=== PATIENT | male | born 1955 | race Caucasian/White ===

== ENCOUNTER → 2020-11-28 | Outpatient (CLI) | payer MEDICARE ==
[~2020-11-28] MED LIST: FLOMAX 0.40.4 MG/CAP PO; HYGROTON 2525 MG/TAB PO; NORVASC 5MG5 MG/TAB PO; PRILOSEC 20MG20 MG PO; WELLBUTRIN SR150 M1 PO
--- NOTE | 2020-11-28 10:00 | NUR ---
Pt here following CT scan to receive IV fluids due to slightly increased creatinine level. Awaiting order from urologists. Pt into relax in chair in room.
== END ==
LOC: COL.RAD 08:49
DX: Z01.812 Encounter for preprocedural laboratory examination (principal); C61 Malignant neoplasm of prostate; M16.0 Bilateral primary osteoarthritis of hip
CPT/HCPCS: A9503; J7050; Q9967

== ENCOUNTER → 2021-02-26 | Outpatient (CLI) | payer MEDICARE ==
[2021-02-26 13:47] VITALS: BP 135/72; PULSE 100; TEMP 98.2
--- NOTE | 2021-02-26 14:05 | NUR ---
Dr Dewitt into ultrasound to look at lymph nodes. Dr Dewitt states positive result is due to covid injection on last wednesday. Procedure canceled and Dr Dewitt was calling Dr Gould. Pt back to holding area. Pt changed and then pt wheeled out to car. Pt up and into car with standby assistance.
== END ==
LOC: COL.RAD 13:21
DX: Z51.0 Encounter for antineoplastic radiation therapy (principal); R59.0 Localized enlarged lymph nodes; C34.2 Malignant neoplasm of middle lobe, bronchus or lung

== ENCOUNTER 2021-07-08 12:58 | Inpatient (IN) | payer MEDICARE ==
[~2021-07-08] VITALS: Ht 177.8 cm; Wt 74.1 kg
[2021-07-08] MEDS ORDERED: COMPAZINE 5MG TA5 MG PO (16:18)
[2021-07-08] MEDS ORDERED: NORCO 325 MG-51 TAB PO (16:19)
[2021-07-08 17:35] LABS: ARTERIAL BLOOD GAS BASE EXCESS -4.1 (-2-2); ARTERIAL BLOOD GAS HCO3 18.3 meq/L (22-26); ARTERIAL BLOOD GAS PCO2 25.2 mmHg (35-45); ARTERIAL BLOOD GAS PO2 57.6 mmHg (80-100); ARTERIAL BLOOD GAS pH 7.48 (7.35-7.45)
[2021-07-08 17:41] VITALS: BP 117/61; PULSE 101; TEMP 98
[2021-07-08 18:30] LABS: PARTIAL THROMBOPLASTIN TIME 29.1 SECONDS (26.0-37.0)
[2021-07-08 19:29] VITALS: BP 103/67; PULSE 96; TEMP 98.5
[2021-07-09 00:27] VITALS: BP 120/67; PULSE 98; TEMP 98.2
[2021-07-09 04:12] VITALS: BP 107/67; PULSE 74; TEMP 97.4
[2021-07-09 06:22] LABS: MEAN CELL VOLUME 96 fl (80.0-100.0); MEAN CORPUSCULAR HGB CONC 33 g/dl (33.0-37.0); MEAN PLATELET VOLUME 11.8 fl (7.4-10.4); PLATELET COUNT 73 K/mm3 (130-400); RED BLOOD COUNT 2.72 M/mm3 (4.20-5.60); REDCELL DISTRIBUTION WIDTH-CV 14.3 % (11.5-14.5)
[2021-07-09 06:28] LABS: HEMATOCRIT 26.1 % (42.0-52.0); HEMOGLOBIN 8.7 g/dl (13.5-18.0); MEAN CORPUSCULAR HEMOGLOBIN 32 pg (27-31)
--- NOTE | 2021-07-09 06:33 | NUR ---
AT THE BEGINNING OF THE AIRCRAFT MAINTENANCE DIRECTOR PATIENT WAS VERY ANXIOUS AND STATING HE COULD NOT BREATHE WITH THE AIRVO ON. THIS NURSE CONTACTED RT TO COME ADJUST THE AIRVO TEMP SETTING FOR PATIENT. THIS DID HELP THE PATIENT FOR AWHILE BUT HE AGAIN BECAME ANXIOUS ABOUT THE AIRVO. CONTACTED MATT LAKHANI AND PUT IN AN ORDER FOR ATIVAN 0.25MG PO AND 9MG MELATONIN. PATIENT HAS BEEN CALM SINCE THESE MEDICATIONS WERE ADMINISTERED. NO OTHER ISSUES NOTED BY THIS NURSE OR REPORTED BY PATIENT.
[2021-07-09 06:44] LABS: CALCIUM 7.7 mg/dL (8.4-10.2); CREATININE, serum 1.3 mg/dL (0.72-1.25); MAGNESIUM 1.5 mg/dL (1.6-2.6); POTASSIUM 3.9 mmol/L (3.5-4.5)
[2021-07-09 07:41] LABS: BAND 2 % (0-10); LYMPHOCYTE 8 % (20.0-51.0); NEUTROPHILS 85 % (42.0-75.2)
[2021-07-09 07:45] LABS: PLATELET ESTIMATE DECREASED (NORMAL)
--- NOTE | 2021-07-09 08:06 | NUR ---
Pt. progressing w/ plan of care. Assessment complete. Needs addressed. Call light and belongings in reach.
[2021-07-09 09:30] VITALS: BP 94/59; PULSE 79; TEMP 97.4
[2021-07-09 12:12] VITALS: BP 95/55; PULSE 69; TEMP 97.5
--- NOTE | 2021-07-09 13:42 | NUR ---
Patient is currently on 45L of airvo. Unable to complete intake with his. Phone call made and message left for the patient's father Navid ([phone]). Phone call made to [facility] in and they confirm that the patient's PCP is Dr. Morena Go at [facility] in . The emergency contact they have on file for the patient is his father and they do not have a DPOA-HC on file. Phone call made to Dr. Obando's office and they too have the patient's father listed as an emergency contact and do not have a DPOA-HC on file for this patient. Collaboration made with the patient's RN to have the patient complete a DPOA-HC form.
--- NOTE | 2021-07-09 14:32 | NUR ---
With the help of the patient's Rn Zari, patient completed DPOA-HC listing his son Bernard ([phone]) with an alternate Saba ([phone]). Copy placed in the patient's chart.
[2021-07-09 15:55] VITALS: BP 97/60; PULSE 74; TEMP 97.5
--- NOTE | 2021-07-09 17:39 | NUR ---
Pt. progressing w/ plan of care. Pain has been tolerable today. Portacath accessed to left chest per Dr. Garcia order. Pt. is sitting upright eating dinner at this time. Remdesivir infusing through R forearm. Pt. is currently on airvo 45L 75%. O2 sat WNL. Needs addressed. Call light and belongings in reach.
[2021-07-09 21:04] VITALS: BP 96/59; PULSE 66; TEMP 97.4
[2021-07-10 00:38] VITALS: BP 101/62; PULSE 67; TEMP 97.7
[2021-07-10 04:00] VITALS: BP 106/63; PULSE 69; TEMP 98.6
[2021-07-10 06:13] LABS: MEAN CELL VOLUME 97 fl (80.0-100.0); MEAN CORPUSCULAR HGB CONC 33 g/dl (33.0-37.0); MEAN PLATELET VOLUME 11.6 fl (7.4-10.4); PLATELET COUNT 72 K/mm3 (130-400); REDCELL DISTRIBUTION WIDTH-CV 14.2 % (11.5-14.5)
[2021-07-10 06:20] LABS: HEMATOCRIT 27.1 % (42.0-52.0); HEMOGLOBIN 8.9 g/dl (13.5-18.0); MEAN CORPUSCULAR HEMOGLOBIN 32 pg (27-31)
[2021-07-10 06:27] LABS: CALCIUM 7.7 mg/dL (8.4-10.2); CREATININE, serum 1.18 mg/dL (0.72-1.25); POTASSIUM 4.3 mmol/L (3.5-4.5)
[2021-07-10 06:38] LABS: MAGNESIUM 1.8 mg/dL (1.6-2.6)
[2021-07-10 07:24] VITALS: BP 100/61; PULSE 80; TEMP 97.5
--- NOTE | 2021-07-10 07:27 | NUR ---
ASSESSMENT COMPLETE FOR THIS SHIFT. PT RESTING IN BED SLEEPING. PT COMPLAINED OF GENERALIZED PAIN A COUPLE OF TIME TONIGHT. NORCO GIVEN FOR PAIN. PAIN MEDICATION EFFECTIVE PER PT. PT DENIED PALPITATIONS, N,V,D OR DIZZINESS. PT ALSO COMPLAINED OF DIFFICULTY BREATHING A LITTLE AFTER 0300HRS. RT CALLED. PT'S INHALER GIVEN. PT STATED HE COULD BREATH BETTER AFTER INHALER. PT EXPRESSED NO OTHER NEEDS AT THIS TIME. CALL LIGHT WITHIN REACH.
[2021-07-10 08:52] LABS: BAND 3 % (0-10); LYMPHOCYTE 4 % (20.0-51.0); NEUTROPHILS 93 % (42.0-75.2); OVALOCYTES 1+
[2021-07-10 08:53] LABS: PLATELET ESTIMATE DECREASED (NORMAL)
[2021-07-10 10:56] VITALS: BP 102/60; PULSE 71; TEMP 98
--- NOTE | 2021-07-10 14:03 | NUR ---
Scheduled medications given. Shift assessment performed. Patient currently requiring 45L of airvo at 70%. SOB at rest noted. Fluids dc'd per doctors orders. Patient has been afebrile and denies any N/V/D. Patient states that he as generalized aching pain, but denies the need for any medication at this time. Patient denies any further pain, discomfort, or further needs at this time. Call light in reach. Fall percautions in place. VSS. Patient A&O.
[2021-07-10 16:21] VITALS: BP 112/63; PULSE 77; TEMP 97.5
[2021-07-10 21:01] VITALS: BP 128/63; PULSE 77; TEMP 97.3
[2021-07-11] VITALS (7 sets, daily range): BP systolic 109–125; BP diastolic 60–71; PULSE 61–85; TEMP 97.5–98
--- NOTE | 2021-07-11 05:32 | NUR ---
Patient awake, alert, oriented x 4, able to verbalize needs, tolerating airvo, denies needs, pain managed with PRN pain meds per MAR, no further reqests at this time, VS stable.
[2021-07-11 06:13] LABS: CREATININE, serum 1.18 mg/dL (0.72-1.25)
--- NOTE | 2021-07-11 18:12 | NUR ---
PATIENT SAT UP IN THE RECLINER FOR 2 HOURS TODAY. HE STATED IT FELT GOOD TO GET OUT OF BED. THIS NURSE ENCOURAGED PATIENT TO TRY TO EAT ALL OF HIS MEALS IN THE CHAIR. PATIENT STATED HE IS FEELING MUCH BETTER TODAY. NO NEW ISSUES NOTED BY THIS NURSE OR REPORTED BY PATIENT. NEW FENT PATCH PLACED ON PATIENTS RIGHT UPPER ARM.
--- NOTE | 2021-07-12 00:12 | NUR ---
Call placed to RT re: SPO2 @89% on airvo- will come adjust O2 settings. Patient stable at this time. NO c/o.
[2021-07-12 04:10] VITALS: BP 109/53; PULSE 80; TEMP 97.8
[2021-07-12 06:07] LABS: HEMOGLOBIN 10.2 g/dl (13.5-18.0); MEAN CELL VOLUME 98 fl (80.0-100.0); MEAN CORPUSCULAR HEMOGLOBIN 33 pg (27-31); MEAN CORPUSCULAR HGB CONC 33 g/dl (33.0-37.0); MEAN PLATELET VOLUME 11.9 fl (7.4-10.4); PLATELET COUNT 77 K/mm3 (130-400); RED BLOOD COUNT 3.14 M/mm3 (4.20-5.60); REDCELL DISTRIBUTION WIDTH-CV 14.3 % (11.5-14.5)
[2021-07-12 06:15] LABS: HEMATOCRIT 30.7 % (42.0-52.0)
[2021-07-12 06:28] LABS: EOS % 0.3 % (0.0-4.0); GRAN # 5.4 K/mm3 (1.4-6.5); GRAN % 86.5 % (42.2-75.2); LYMPH # 0.6 K/mm3 (1.2-3.4); MONO # 0.2 K/mm3 (0.1-0.6); MONO % 3.2 % (1.7-9.3)
[2021-07-12 06:57] LABS: CALCIUM 8.2 mg/dL (8.4-10.2); CREATININE, serum 1.15 mg/dL (0.72-1.25); POTASSIUM 5.1 mmol/L (3.5-4.5)
[2021-07-12 08:35] VITALS: BP 125/92; PULSE 88; TEMP 97.5
--- NOTE | 2021-07-12 09:06 | NUR ---
PT ASSESSED. NO COMPLAINTS OF PAIN. COMPLAINS OF DYSPNEA, BUT IS ABLE TO REMAIN CALM AND HAVE STABLE SATURATIONS. RT AWARE. CALL LIGHT WITHIN REACH
--- NOTE | 2021-07-12 09:51 | NUR ---
CALLED TO BEDSIDE TO ASSIST WITH GOING TO THE RESTROOM PT EXTREMELY SHORT OF BREATH. DENIES DIZZINESS OR PAIN. PULSE OX AT 75% UPON RETURN TO BED. PT CLEARLY ANXUIOUS AND TELLS HIMSELF TO CALM DOWN REPEATEDLY. PT TAKES GREATER THAN 6 MINUTES TO RECOVER FROM TRIP TO BATHROOM. SATURATION AT 92% BEFORE THIS NURSE LEAVES. MD AT BEDSIDE NOW. NO OTHER COMPLAINTS.
[2021-07-12 11:34] VITALS: BP 118/65; PULSE 85; TEMP 97.7
[2021-07-12 16:24] VITALS: BP 103/51; PULSE 89; TEMP 97.7
[2021-07-12 20:41] VITALS: BP 104/65; PULSE 96; TEMP 98.2
[2021-07-13] VITALS: BP 100/62; PULSE 80; TEMP 97.9
[2021-07-13 04:27] VITALS: BP 108/67; PULSE 95; TEMP 97.8
[2021-07-13 06:43] LABS: HEMOGLOBIN 10.7 g/dl (13.5-18.0); MEAN CELL VOLUME 96 fl (80.0-100.0); MEAN CORPUSCULAR HEMOGLOBIN 32 pg (27-31); MEAN CORPUSCULAR HGB CONC 34 g/dl (33.0-37.0); MEAN PLATELET VOLUME 12.5 fl (7.4-10.4); PLATELET COUNT 87 K/mm3 (130-400); RED BLOOD COUNT 3.32 M/mm3 (4.20-5.60); REDCELL DISTRIBUTION WIDTH-CV 14.3 % (11.5-14.5)
[2021-07-13 06:59] LABS: HEMATOCRIT 31.8 % (42.0-52.0)
[2021-07-13 07:01] LABS: CALCIUM 8.3 mg/dL (8.4-10.2); CREATININE, serum 1.23 mg/dL (0.72-1.25); POTASSIUM 4.4 mmol/L (3.5-4.5)
[2021-07-13 07:47] LABS: BAND 2 % (0-10); EOSINOPHIL 2 % (0-4); LYMPHOCYTE 4 % (20.0-51.0); NEUTROPHILS 90 % (42.0-75.2); PLATELET ESTIMATE DECREASED (NORMAL)
[2021-07-13 07:48] LABS: TEAR DROP CELLS 1+
[2021-07-13 09:00] VITALS: BP 107/70; PULSE 103; TEMP 97.5
--- NOTE | 2021-07-13 09:07 | NUR ---
PT ASSESSED. NO COMPLAINS OF PAIN AND DSYPNEA AND IS MEDICATED PER MAR. REPORTS HAVING CHEST PAIN RELATED TO TAKING DEEP BREATHS. CALL LIGHT WITHIN REACH
[2021-07-13 12:19] VITALS: BP 103/66; PULSE 97; TEMP 97.9
[2021-07-13 16:38] VITALS: BP 100/67; PULSE 86; TEMP 97.7
[2021-07-13 20:41] VITALS: BP 104/69; PULSE 99; TEMP 97.9
--- NOTE | 2021-07-13 22:03 | NUR ---
ALERT ANDOX3. DENIES SOA EXCEPT WHEM AMBULATING. COMMODE AT BEDSIDE. PM MEDS GIVEN. NORCO FOR CHEST/BACK PAIN. PM MEDS,POC DISCUSSED. CALL LIGHT WI REACH. NEEDS ARE MET.
[2021-07-14] VITALS (8 sets, daily range): BP systolic 102–113; BP diastolic 57–98; PULSE 88–108; TEMP 97.4–98.5
--- NOTE | 2021-07-14 05:22 | NUR ---
PT CALLS TO JOHNK SAYING HE CANT BREATH. 02 AT 80%- CANT TAKE DEEP BREATH DUE TO PAIN IN RT UPPER CHEST, NOT NEW, HAS BEEN THERE FOR 5-6 DAYS PER PT. MEÑO GUTIERREZ CALLED, OKAY TO GIVEN MORPHINE NOW. RT INROUTE. LABORED BREATHING AND MOANING. BREATHING TX DONE PER RT.
--- NOTE | 2021-07-14 06:03 | NUR ---
PT O2 UP TO 93%, MAXED ON AIRVO. CALMED DOWN AND RESTING NOW. CXR BEING DONE. AM LABS DRAWN. MEÑO UPDATED ON PT STATUS.
[2021-07-14 06:52] LABS: HEMOGLOBIN 11.2 g/dl (13.5-18.0); MEAN CELL VOLUME 96 fl (80.0-100.0); MEAN CORPUSCULAR HEMOGLOBIN 32 pg (27-31); MEAN CORPUSCULAR HGB CONC 34 g/dl (33.0-37.0); MEAN PLATELET VOLUME 11.8 fl (7.4-10.4); PLATELET COUNT 76 K/mm3 (130-400); RED BLOOD COUNT 3.47 M/mm3 (4.20-5.60); REDCELL DISTRIBUTION WIDTH-CV 14.6 % (11.5-14.5)
[2021-07-14 06:59] LABS: HEMATOCRIT 33.4 % (42.0-52.0)
[2021-07-14 07:08] LABS: CALCIUM 8.3 mg/dL (8.4-10.2); CREATININE, serum 1.44 mg/dL (0.72-1.25); POTASSIUM 4.4 mmol/L (3.5-4.5)
[2021-07-14 08:02] LABS: BAND 5 % (0-10); LYMPHOCYTE 1 % (20.0-51.0); NEUTROPHILS 94 % (42.0-75.2)
[2021-07-14 08:04] LABS: POLYCHROMASIA 1+
[2021-07-14 08:05] LABS: ANISOCYTOSIS 1+; MICROCYTOSIS 1+
[2021-07-14 08:07] LABS: PLATELET ESTIMATE DECREASED (NORMAL)
--- NOTE | 2021-07-14 13:39 | NUR ---
Rheologist collaborated with Hospitalist about [facility] referral. SW contacted Avni at [facility] and faxed referral.
--- NOTE | 2021-07-14 22:12 | NUR ---
alert and ox3. Feeling soa- attempt cpap with RT not able to tolerate. Pain 8/10 to rt upper chest. Meds given for pain. poc discussed. call light wi reach.
--- NOTE | 2021-07-15 05:31 | NUR ---
RESTED THROUGH THE NIGHT BETTER THAN LAST NIGHT. HELPS TO STAY ON TOP OF PAIN MEDS. AM LABS DRAWN. CALL LIGHT WI REACH.
[2021-07-15 05:57] VITALS: BP 111/58; PULSE 84; TEMP 98.4
[2021-07-15 08:41] VITALS: BP 112/71; PULSE 97; TEMP 98.1
[2021-07-15 13:15] VITALS: BP 113/63; PULSE 92; TEMP 98.5
--- NOTE | 2021-07-15 15:53 | NUR ---
Financial Services Officer attempted to contact patient by room phone with no success. YAJAIRA contacted Avni at [facility] and faxed clinical updates. Avni does not feel patient is stable for transfer at this time due to oxygen needs. Avni advised patient could possibly transport on bipap if able to tolerate it. YAJAIRA updated Hospitalist on the above. YAJAIRA also contacted patient's son, Bernard and provided an update on discharge planning. Discharge Plan: [facility]
[2021-07-15 16:00] VITALS: BP 106/58; PULSE 82; TEMP 98.5
--- NOTE | 2021-07-15 16:00 | NUR ---
Patient doing well, but remains in pain. PRN morphine and norco are being alternated for optimal pain control.
[2021-07-15 19:44] VITALS: BP 116/60; PULSE 101; TEMP 98.4
--- NOTE | 2021-07-15 21:36 | NUR ---
ALERT AND OX4. DENIES SOA, CHEST PAIN OR DIZZY. PAIN IN RT UPPER STERNUM FROM COUGHING AND FEELS LIKE PULLED MUSCLE. PM MEDS GIVEN. NORCO FOR PAIN AND NIGHT SNACK. CALL LIGHT WI REACH. AIRVO ON.
[2021-07-15 23:55] VITALS: BP 103/64; PULSE 90; TEMP 98.1
[2021-07-16 04:08] VITALS: BP 100/69; PULSE 97; TEMP 98.2
[2021-07-16 07:45] VITALS: BP 110/74; PULSE 99; TEMP 98.3
--- NOTE | 2021-07-16 08:05 | NUR ---
Pt assessment complete. Pt is sitting in bed upon entry, breathing is tachy on airvo. Endorses SOB at rest and on exertion. Increased production of phlegm with cough. Reports pain to chest radiates to R side of neck and shoulder, PRN pain medication administered. Pt denies N/V. Offered personal hygiene to patient he refused at this time. No needs at this time. Call light within reach.
[2021-07-16 11:19] VITALS: BP 100/57; PULSE 102; TEMP 98.4
[2021-07-16 15:52] VITALS: BP 102/58; PULSE 99; TEMP 98.9
[2021-07-16 20:47] VITALS: BP 95/60; PULSE 100; TEMP 98.5
[2021-07-17 00:37] VITALS: BP 109/60; PULSE 89; TEMP 98.7
--- NOTE | 2021-07-17 03:11 | NUR ---
Awake, alert, oriented x 3, verbal with clear communication, cough noted, tolerating airvo, shob noted on exertion, encouraged hot liquids and side lying position, pain managment per MAR, no further issues noted.
[2021-07-17 04:02] VITALS: BP 102/61; PULSE 90; TEMP 98.5
[2021-07-17 07:04] LABS: MEAN CELL VOLUME 100 fl (80.0-100.0); MEAN CORPUSCULAR HGB CONC 33 g/dl (33.0-37.0); MEAN PLATELET VOLUME 11.9 fl (7.4-10.4); PLATELET COUNT 72 K/mm3 (130-400); RED BLOOD COUNT 2.85 M/mm3 (4.20-5.60); REDCELL DISTRIBUTION WIDTH-CV 14.9 % (11.5-14.5)
[2021-07-17 07:14] LABS: HEMATOCRIT 28.4 % (42.0-52.0); HEMOGLOBIN 9.4 g/dl (13.5-18.0); MEAN CORPUSCULAR HEMOGLOBIN 33 pg (27-31)
[2021-07-17 07:53] VITALS: BP 109/68; PULSE 97; TEMP 97.9
[2021-07-17 09:28] LABS: C-REACTIVE PROTEIN 2.07 mg/dL (0.00-0.50); CREATININE, serum 1.19 mg/dL (0.72-1.25); POTASSIUM 3.9 mmol/L (3.5-4.5)
--- NOTE | 2021-07-17 09:41 | NUR ---
PT ASSESSED. NO COMPLAINTS OF DYPSNEA, BUT DOES COMPLAIN OF PAIN AND IS MEDICATED PER MAR. NO OTHER COMPLAINTS OF CONCERNS AT THIS TIME. CALL LIGHT WITHIN REACH
[2021-07-17 12:00] VITALS: BP 99/62; PULSE 92; TEMP 97.8
--- NOTE | 2021-07-17 14:36 | NUR ---
Director Personal faxed clinical updates to Avni at [facility]. Patient will need to be able to tolerate bipap for transport. YAJAIRA updated Hospitalist. Discharge Plan: [facility]
[2021-07-17 15:52] VITALS: BP 119/66; PULSE 108; TEMP 98.7
[2021-07-17 21:19] VITALS: BP 125/71; PULSE 105; TEMP 98.3
[2021-07-17 21:42] LABS: ARTERIAL BLD GAS O2 SATURATION 80.8 % (92-100); ARTERIAL BLD GAS TCO2 CT 25.1; ARTERIAL BLOOD GAS BASE EXCESS 0.9 (-2-2); ARTERIAL BLOOD GAS HCO3 24.1 meq/L (22-26); ARTERIAL BLOOD GAS PCO2 33.2 mmHg (35-45); ARTERIAL BLOOD GAS pH 7.48 (7.35-7.45)
[2021-07-17 21:43] LABS: ARTERIAL BLOOD GAS PO2 44.6 mmHg (80-100)
[2021-07-18] VITALS (311 sets, daily range): BP systolic 88–115; BP diastolic 54–74; PULSE 92–114; TEMP 97.5–99; O2SAT 82–100
--- NOTE | 2021-07-18 01:28 | NUR ---
patient did not tolerate bipap- pulled off twice and refused to wear it. RT notified and removed bipap and put airvo on. patient hollaring out and screaming "I can't breathe" periodically upon waking, repositioned, toileted, RT managing O2, patient calm and settled at this time with SPO2@94%. Will continue to monitor.
[2021-07-18 06:54] LABS: MEAN CELL VOLUME 99 fl (80.0-100.0); MEAN CORPUSCULAR HGB CONC 33 g/dl (33.0-37.0); MEAN PLATELET VOLUME 12.6 fl (7.4-10.4); PLATELET COUNT 74 K/mm3 (130-400); RED BLOOD COUNT 2.91 M/mm3 (4.20-5.60); REDCELL DISTRIBUTION WIDTH-CV 14.9 % (11.5-14.5)
[2021-07-18 07:05] LABS: HEMATOCRIT 28.8 % (42.0-52.0); HEMOGLOBIN 9.4 g/dl (13.5-18.0); MEAN CORPUSCULAR HEMOGLOBIN 32 pg (27-31)
[2021-07-18 07:13] LABS: CALCIUM 8.2 mg/dL (8.4-10.2); CREATININE, serum 1.19 mg/dL (0.72-1.25); POTASSIUM 4.1 mmol/L (3.5-4.5)
--- NOTE | 2021-07-18 09:14 | NUR ---
PT ASSESSED. NO COMPLAINTS OF DYSPNEA. COMPLAINS OF PAIN AND IS MEDICATED PER MAR. NO OTHER CONCERNS AT THIS TIME. CALL LIGHT WITHIN REACH
--- NOTE | 2021-07-18 12:25 | NUR ---
PT TRANSFERED DOWNT TO ICU 3. PT IS AXOX4. PT IS ON AIRVO SATING UPPER 90'S. OTHER VSS. PT ORIENTED TO ROOM AND FLOOR. WILL CONITNUE TO [facility].
--- NOTE | 2021-07-18 12:44 | NUR ---
REPORT CALLED TO KARLA IN ICU. ALL QUESTIONS ANSWERED. RT AND JIM RN TO ASSIST WITH TRANSFER TO ICU ROOM 3. PT SETTLED THERE. NO OTHER CONCERNS AT THIS TIME
--- NOTE | 2021-07-18 12:54 | NUR ---
Patient to transfer to ICU. Furniture Dipper contacted Avni at [facility] to provide update. Patient was unable to tolerate bipap overnight so he is not stable for transport at this time. Discharge Plan: [facility]
[2021-07-19] VITALS (776 sets, daily range): BP systolic 83–122; BP diastolic 46–85; PULSE 71–112; TEMP 96.3–98.5; O2SAT 53–100
[2021-07-19 04:44] LABS: ARTERIAL BLD GAS O2 SATURATION 95.9 % (92-100); ARTERIAL BLOOD GAS BASE EXCESS -0.7 (-2-2); ARTERIAL BLOOD GAS HCO3 22.9 meq/L (22-26); ARTERIAL BLOOD GAS PCO2 33.9 mmHg (35-45); ARTERIAL BLOOD GAS PO2 85.7 mmHg (80-100); ARTERIAL BLOOD GAS pH 7.45 (7.35-7.45)
[2021-07-19 06:25] LABS: MEAN CELL VOLUME 100 fl (80.0-100.0); MEAN CORPUSCULAR HGB CONC 33 g/dl (33.0-37.0); PLATELET COUNT 72 K/mm3 (130-400); RED BLOOD COUNT 2.79 M/mm3 (4.20-5.60); REDCELL DISTRIBUTION WIDTH-CV 15.2 % (11.5-14.5)
[2021-07-19 06:26] LABS: HEMOGLOBIN 9.1 g/dl (13.5-18.0); MEAN CORPUSCULAR HEMOGLOBIN 33 pg (27-31)
[2021-07-19 06:27] LABS: HEMATOCRIT 27.9 % (42.0-52.0)
[2021-07-19 06:36] LABS: C-REACTIVE PROTEIN 3.81 mg/dL (0.00-0.50); CALCIUM 8.5 mg/dL (8.4-10.2); CREATININE, serum 1.19 mg/dL (0.72-1.25); POTASSIUM 4.7 mmol/L (3.5-4.5)
--- NOTE | 2021-07-19 11:16 | NUR ---
02 in the mid 80's with freqent coughing. PRN mucinex administered and placed back on BIPAP. Patient also stated that he wants to uphold his DNR status and would agree to intubation if needed.
--- NOTE | 2021-07-19 12:15 | NUR ---
Alternating between airvo and BIPAP. Tolerated Air0vo for several hours this morning however began having frequent forcefull coughing fits and [address] on BIPAP until lunch arrives. Continues to complain of right sided shart chest pain which is worse with coughing. Hospitalist and Dr. Villanueva aware and pain medication has been increased. Will continue to monitor.
--- NOTE | 2021-07-19 22:54 | NUR ---
Patient expressed he felt like he "needed to pee but couldn't"; patient was bladder scanned and scanner showed 360mL of urine. Patient continued to try to urinate and got another 125mL out shortly thereafter; patient is denying a Degroot catheter at this time.
[2021-07-20] VITALS (563 sets, daily range): BP systolic 84–141; BP diastolic 54–81; PULSE 56–102; TEMP 97.8–99.3; O2SAT 68–100
[2021-07-20 04:31] LABS: ARTERIAL BLD GAS O2 SATURATION 91.5 % (92-100); ARTERIAL BLOOD GAS BASE EXCESS -0.9 (-2-2); ARTERIAL BLOOD GAS HCO3 22.9 meq/L (22-26); ARTERIAL BLOOD GAS PCO2 35.4 mmHg (35-45); ARTERIAL BLOOD GAS PO2 63.1 mmHg (80-100); ARTERIAL BLOOD GAS pH 7.43 (7.35-7.45)
[2021-07-20 05:45] LABS: MEAN CELL VOLUME 99 fl (80.0-100.0); MEAN CORPUSCULAR HGB CONC 32 g/dl (33.0-37.0); MEAN PLATELET VOLUME 11.8 fl (7.4-10.4); PLATELET COUNT 93 K/mm3 (130-400); RED BLOOD COUNT 3.03 M/mm3 (4.20-5.60); REDCELL DISTRIBUTION WIDTH-CV 15.2 % (11.5-14.5)
[2021-07-20 05:55] LABS: ALBUMIN 2.3 gm/dL (3.4-4.8); BILIRUBIN,TOTAL 0.5 mg/dL (0.2-1.2); C-REACTIVE PROTEIN 8.14 mg/dL (0.00-0.50); CALCIUM 8.5 mg/dL (8.4-10.2); CREATININE, serum 1.46 mg/dL (0.72-1.25); POTASSIUM 4.4 mmol/L (3.5-4.5); TOTAL PROTEIN 5.3 gm/dL (6.2-8.1)
[2021-07-20 06:00] LABS: HEMATOCRIT 30.1 % (42.0-52.0); HEMOGLOBIN 9.7 g/dl (13.5-18.0); MEAN CORPUSCULAR HEMOGLOBIN 32 pg (27-31)
[2021-07-20 06:53] LABS: ANISOCYTOSIS 1+; BAND 4 % (0-10); BASOPHIL 1 % (0-2); EOSINOPHIL 1 % (0-4); LYMPHOCYTE 2 % (20.0-51.0); NEUTROPHILS 90 % (42.0-75.2); PLATELET ESTIMATE DECREASED (NORMAL)
[2021-07-20 06:54] LABS: OVALOCYTES 1+; TEAR DROP CELLS 1+
--- NOTE | 2021-07-20 06:58 | NUR ---
Patient switched from Airvo to BiPAP last night at approx 1200 but did not tolerate the BiPAP well and ultimately went back to Airvo at about 0500. Patient seems to rest better and have less coughing when on Airvo, and his SpO2 remained 98-99% while on Airvo.
--- NOTE | 2021-07-20 08:18 | NUR ---
Patient resting in bed with eyes shut. VS stable; no concerns at this time.
--- NOTE | 2021-07-20 08:48 | NUR ---
02 mid 80's on current Airvo settings and 02 increased from 83% to 90% with an increase in SPO2 reading to 90%. Placed BIPAP back on and will re-try Airvo when breakfast arrives.
--- NOTE | 2021-07-20 09:05 | NUR ---
Dr. Villanueva at bedside to see patient; increased 02 to 100% on BIPAP due to SP02 reading mid to high 80's. Patient is alert, oriented and cooperative with staff; does not appear to be in any distress. Will continue to monitor.
--- NOTE | 2021-07-20 16:34 | NUR ---
Jair resting in bed while wearing BIPAP. Continues to have a forcefull intermittent cough. Patient states that his chest pain due to coughing is "better" than yesterday.
--- NOTE | 2021-07-20 19:45 | NUR ---
PM ASSESSMENT COMPLETE, PT SITTING UP IN BED ON AIRVO. HAS FREQUENT PRODUCTIVE COUGH, REPORTS DISCOMFORT IN RT CHEST WITH COUGH, BUT "GETTING BETTER." HELPED MOVE TO BIPAP AT THIS TIME, FIO2 100%. LEVOPHED AND PRECEDEX INFUSING TO L CHEST WALL PORTACATH. PT REPORTS NO QUESTIONS OR CONCERNS. REQUESTS NORCO WITH PM MEDS, WILL ADMINISTER PER PRN ORDER. WILL CONTINUE TO MONITOR.
[2021-07-21] VITALS (364 sets, daily range): BP systolic 87–110; BP diastolic 52–67; PULSE 72–89; TEMP 97.7–98.8; O2SAT 75–100
[2021-07-21 04:19] LABS: ARTERIAL BLD GAS O2 SATURATION 97.5 % (92-100); ARTERIAL BLD GAS TCO2 CT 24.8; ARTERIAL BLOOD GAS BASE EXCESS -0.6 (-2-2); ARTERIAL BLOOD GAS HCO3 23.7 meq/L (22-26); ARTERIAL BLOOD GAS PCO2 37.7 mmHg (35-45); ARTERIAL BLOOD GAS PO2 98.3 mmHg (80-100); ARTERIAL BLOOD GAS pH 7.42 (7.35-7.45)
[2021-07-21 05:24] LABS: MEAN CELL VOLUME 99 fl (80.0-100.0); MEAN CORPUSCULAR HGB CONC 34 g/dl (33.0-37.0); MEAN PLATELET VOLUME 11.9 fl (7.4-10.4); PLATELET COUNT 71 K/mm3 (130-400); RED BLOOD COUNT 2.48 M/mm3 (4.20-5.60); REDCELL DISTRIBUTION WIDTH-CV 15.3 % (11.5-14.5)
[2021-07-21 05:41] LABS: C-REACTIVE PROTEIN 5.38 mg/dL (0.00-0.50); CALCIUM 8.3 mg/dL (8.4-10.2); CREATININE, serum 1.26 mg/dL (0.72-1.25); POTASSIUM 4.5 mmol/L (3.5-4.5)
[2021-07-21 06:02] LABS: HEMATOCRIT 24.5 % (42.0-52.0); HEMOGLOBIN 8.2 g/dl (13.5-18.0); MEAN CORPUSCULAR HEMOGLOBIN 33 pg (27-31)
[2021-07-21 06:40] LABS: BAND 3 % (0-10); LYMPHOCYTE 2 % (20.0-51.0); NEUTROPHILS 90 % (42.0-75.2)
[2021-07-21 06:41] LABS: ANISOCYTOSIS 1+; PLATELET ESTIMATE DECREASED (NORMAL)
--- NOTE | 2021-07-21 08:40 | NUR ---
REPORT RECEIVED FROM LUCY HUYNH. PT IS ALERT AND ORIENTED. PT WAS ABLE TO WEAR BIPAP OVERNIGHT; IS CURRENTLY ON AIRVO AT 60L AND 95%. LEFT CHEST PORT A CATH IN PLACE WITH MEDICATIONS INFUSING; SEE GTT FLOW SHEET. PT VOIDS USING URINAL. CALL LIGHT IS IN REACH. VITAL SIGNS STABLE.
--- NOTE | 2021-07-21 10:50 | NUR ---
Sap Bods Developer spoke with Dr. Villanueva who advised patient is not ready for discharge to [facility] at this time. SW contacted Av[facility] and faxed clinical updates. SW contacted patient's son, Bernard to provide update. Discharge Plan: [facility]
--- NOTE | 2021-07-21 12:50 | NUR ---
Initial Spiritual Care: Warehouse Order Selector wrote a card with Holy Scripture and a note from a friend who had called requesting a prayer be said. KENNETH prevented Warehouse Order Selector from visiting although she did get in touch with patient through the card. Warehouse Order Selector will call his friend and let her know.
[2021-07-22] VITALS (915 sets, daily range): BP systolic 71–140; BP diastolic 51–77; PULSE 73–101; TEMP 97.4–98.1; O2SAT 63–100
[2021-07-22 04:25] LABS: MEAN CELL VOLUME 100 fl (80.0-100.0); MEAN CORPUSCULAR HGB CONC 32 g/dl (33.0-37.0); MEAN PLATELET VOLUME 11.7 fl (7.4-10.4); PLATELET COUNT 67 K/mm3 (130-400); RED BLOOD COUNT 2.73 M/mm3 (4.20-5.60); REDCELL DISTRIBUTION WIDTH-CV 15.6 % (11.5-14.5)
[2021-07-22 04:28] LABS: HEMATOCRIT 27.4 % (42.0-52.0); HEMOGLOBIN 8.8 g/dl (13.5-18.0); MEAN CORPUSCULAR HEMOGLOBIN 32 pg (27-31)
[2021-07-22 04:43] LABS: ALBUMIN 2.1 gm/dL (3.4-4.8); BILIRUBIN,TOTAL 0.3 mg/dL (0.2-1.2); C-REACTIVE PROTEIN 3.47 mg/dL (0.00-0.50); CALCIUM 8.4 mg/dL (8.4-10.2); CREATININE, serum 1.14 mg/dL (0.72-1.25); POTASSIUM 4.1 mmol/L (3.5-4.5); TOTAL PROTEIN 4.8 gm/dL (6.2-8.1)
[2021-07-22 04:46] LABS: ANISOCYTOSIS 1+; BAND 21 % (0-10); EOSINOPHIL 2 % (0-4); LYMPHOCYTE 4 % (20.0-51.0); NEUTROPHILS 70 % (42.0-75.2); PLATELET ESTIMATE NORMAL (NORMAL)
--- NOTE | 2021-07-22 08:35 | NUR ---
Placed on Airvo to eat breakfast, however patient called back within [address] BIPAP back on due to severe shortness of breath. Placed back on BIPAP at 100%. 02 low 90's after approximately 10 minutes of BIPAP. Will continue to monitor.
--- NOTE | 2021-07-22 09:59 | NUR ---
Patient acutely short of breath; BIPAP settings adjusted per Dr. Villanueva. Dr. Villanueva at bedside discussing possibility of intubation.
--- NOTE | 2021-07-22 10:19 | NUR ---
Respirations in the 40's and patient obviously more fatigued than during earlier assessment. After a bedside discussion with Dr. Villanueva regarding pros and cons, patient has decided to decline intubation and will remain a DNR. Otherwise patient wished to continue current plan of care. Dr. Villanueva to call patient's son with an update.
--- NOTE | 2021-07-22 13:50 | NUR ---
Patient removed his BIPAP to take a sip of water and was unable to get mask back on appropriately; 02 desaturated to the 70's. RT came into room to assist patient with the BIPAP. Reported needing to have a BM at this time. Assited onto the bedpan but only urinated. Assisted with ritesh-care and provided pain and anti-anxiety medication as requested. WIll continue to monitor.
--- NOTE | 2021-07-22 14:12 | NUR ---
Son arrived at bedside; plan of care discussed with son. Vistiting policy reviewed and understands normal visitation for [facility] patients is for comfort care patients only.
--- NOTE | 2021-07-22 16:25 | NUR ---
Patient's son just stepped out of the room to leave when patient began pulling at his BIPAP. Patient had been sleeping during the entire visit and woke up just as his son was leaving. Entered patient's room and placed on air vo as patient was still pulling at BIPAP and saying "I can't I can't". Patient visibly in distress, with tachypnea and shallowing breathing. Asked if he just wanted us to "make him comfortable" and patient stated "yes". Son returned to the room. Requested that patient and son take a few minutes to discuss their decision with plan of care. Dr. Arias notified and will come to speak with family and patient.
--- NOTE | 2021-07-22 17:29 | NUR ---
Dr. Arias at bedside to discuss plan of care with patient and patient's son Theo. Patient has decided to initiate comfort cares. Will initiate comfort care orders but will keep precedex and levophed and current o2 settings on until other two sons arrive from [facility] today.
--- NOTE | 2021-07-22 19:00 | NUR ---
Three sons in room to see patient. Discussed purpose and goals of comfort care. All questions addressed at this time.
--- NOTE | 2021-07-22 20:10 | NUR ---
SONS AT BEDSIDE. PATIENT HAVING DIFFICULTY BREATHING AFTER RECENT ATIVAN AND MORPHINE. RESTARTED PRECEDEX AT THIS TIME FOR COMFORT. WILL NOTIFY MEÑO GUTIERREZ. FAMILY UPDATED AND ALL QUESTIONS ANSWERED.
[2021-07-23] VITALS (465 sets, daily range): O2SAT 48–94
--- NOTE | 2021-07-23 00:19 | NUR ---
Patient respirations in 30s with air hunger. Given morphine as ordered.
--- NOTE | 2021-07-23 01:41 | NUR ---
RESPIRATORY RATE 30S WITH LABORED BREATHING. GIVEN PRN MORPHINE
--- NOTE | 2021-07-23 05:50 | NUR ---
PATIENT AWAKE WITH AIR HUNGER COUGHING AND BREATHING 60 RR. GIVEN PRN MORPHINE AND ATIVAN
--- NOTE | 2021-07-23 07:38 | NUR ---
Patient not alert or responsive; shallow rapid respirations noted. Administered PRN comfort care meds as ordered. Sons at bedside. All questions answered. Will continue to monitor.
--- NOTE | 2021-07-23 09:20 | NUR ---
Time of called at 0920. Verified with auscultation with two RN's at bedside. corrections unit supervisor notified.
--- NOTE | 2021-07-23 09:36 | NUR ---
This Spark Plug Assembler met with the patient's sons. They do not have the home information with them at this time. They will call me back with the home information when they arrive at the patient's home.
--- NOTE | 2021-07-23 11:10 | NUR ---
[facility] called. Referral Number is [id number]. Will await a call back from the agency sales representative.
--- NOTE | 2021-07-23 12:55 | NUR ---
Call back received from the Son, Yunior. They would like [facility] in [place], [place]. Will call them now.
--- NOTE | 2021-07-23 13:01 | NUR ---
[facility] in [place] called at this time. [id number]
--- NOTE | 2021-07-23 14:00 | NUR ---
home here at this time by security systems sales representative.
== END 2021-07-23 14:00 | disposition expired | DRG 177 ==
LOC: MEDICAL 12:58 → ICU 07-18 12:25
PROVIDERS: Internal Medicine; Internal Medicine Pulmonary Disease; Internal Medicine Sleep Medicine; Nurse Practitioner Family; Student in an Organized Health Care Education/Training Program; ADMIT Internal Medicine
PROC: XW033E5 Introduction of Remdesivir Anti-infective into Peripheral Vein, Percutaneous Approach, New Technology Group 5 (ICD-10-PCS; principal; 2021-07-08)
PROC: 5A0945A Assistance with Respiratory Ventilation, 24-96 Consecutive Hours, High Flow/Velocity Cannula (ICD-10-PCS; 2021-07-08)
PROC: 5A09457 Assistance with Respiratory Ventilation, 24-96 Consecutive Hours, Continuous Positive Airway Pressure (ICD-10-PCS; 2021-07-18)
DX: U07.1 COVID-19 (principal); J12.82 Pneumonia due to coronavirus disease 2019; J96.01 Acute respiratory failure with hypoxia; C34.90 Malignant neoplasm of unspecified part of unspecified bronchus or lung; J44.9 Chronic obstructive pulmonary disease, unspecified; K21.9 Gastro-esophageal reflux disease without esophagitis; G89.29 Other chronic pain; K44.9 Diaphragmatic hernia without obstruction or gangrene; Z66 Do not resuscitate; D69.6 Thrombocytopenia, unspecified; E83.42 Hypomagnesemia; K59.00 Constipation, unspecified; N18.9 Chronic kidney disease, unspecified; I12.9 Hypertensive chronic kidney disease with stage 1 through stage 4 chronic kidney disease, or unspecified chronic kidney disease; F41.9 Anxiety disorder, unspecified; Z85.46 Personal history of malignant neoplasm of prostate; Z87.891 Personal history of nicotine dependence; Z51.5 Encounter for palliative care; Z73.0 Burn-out
CPT/HCPCS: 99223-AI; 99232-AI; 99233-AI; 99239; J0248; J0692; J0696; J1630; J1644; J1650; J1940; J2060; J2175; J2270; J2543; J3370; J3475; J7030; J7050; J7060; J8540; Q0249; Q9967